=== PATIENT | female | born 1940 | race Caucasian/White ===

== ENCOUNTER 2017-07-08 09:03 | Emergency (ER) | payer OTHER ==
[2017-07-08] MEDS: LIDOCAINE 1% (MDV) 20 ML INJ SC (10:06)
== END 2017-07-08 11:06 | disposition home or self-care (01) ==
LOC: FTE 09:03
DX: L60.0 Ingrowing nail (principal); I10 Essential (primary) hypertension
CPT/HCPCS: 11765; 99283-25